=== PATIENT | male | born 1985 | race Asian ===

== ENCOUNTER 2024-06-09 09:34 | Inpatient (IN) | payer OTHER ==
[~2024-06-09] VITALS: Ht 190.5 cm; Wt 113.0 kg
[2024-06-09 10:22] LABS: BASOPHILS % (AUTO) 0.2 % (0.0-2.0); EOSINOPHILS % (AUTO) 1.4 % (1.0-6.0); HEMOGLOBIN 16.2 g/dL (13.5-17.5); LYMPHOCYTES # (AUTO) 1.5 K/uL (1.0-4.8); LYMPHOCYTES % (AUTO) 15.7 % (22.0-44.0); MEAN CORPUSCULAR HEMOGLOBIN 30.4 pg (26.0-34.0); MEAN CORPUSCULAR HGB CONC 33.8 G/dL (31.0-37.0); MEAN CORPUSCULAR VOLUME 90 fL (80-100); MONOCYTES # (AUTO) 0.7 K/uL (0.1-1.0); NEUTROPHILS % (AUTO) 74.7 % (40.0-70.0); PLATELET COUNT (AUTO) 276 K/uL (150-450); RED BLOOD CELL COUNT(AUTO) 5.34 MIL/uL (4.50-5.90); RED CELL DISTRIBUTION WIDTH 13.3 % (11.5-14.5); WHITE BLOOD COUNT (AUTO) 9.4 K/uL (4.5-11.0)
[2024-06-09 10:24] LABS: ANION GAP 8 mmol/L (8-16); CALCIUM, TOTAL 9.3 mg/dL (8.8-10.5); CARBON DIOXIDE 29 mmol/L (22-29); CHLORIDE 104 mmol/L (98-107); CREATININE 0.75 mg/dL (0.60-1.30); GLOMERULAR FILTR. RATE CALC > 60 mL/min (>60); GLUCOSE,RANDOM 95 mg/dL (70-110); POTASSIUM 3.7 mmol/L (3.5-5.1); SODIUM SERUM 141 mmol/L (136-145); UREA NITROGEN, BLOOD 15 mg/dL (7-18)
[2024-06-09 10:42] LABS: ALCOHOL, BLOOD (SERUM) < 3 mg/dL (0-10)
[2024-06-09] MEDS: NICOTINE 21 MG/24 HOUR PATCH TD ONE (11:30)
[2024-06-09 11:37] LABS: PH,URINE DRUG SCREEN 6.5 (5.0-8.0)
[2024-06-09 11:48] LABS: ALCOHOL, URINE DRUG SCREEN NEGATIVE (NEGATIVE); AMPHET/METH SCREEN,URINE NEGATIVE (NEGATIVE); BARBITURATE SCREEN, URINE NEGATIVE (NEGATIVE); BENZODIAZEPINES SCREEN,URINE NEGATIVE (NEGATIVE); CANNABINOID SCREEN,URINE NEGATIVE (NEGATIVE); COCAINE SCREEN,URINE NEGATIVE (NEGATIVE); METHADONE SCREEN, URINE NEGATIVE (NEGATIVE); OPIATE SCREEN,URINE NEGATIVE (NEGATIVE); PHENCYCLIDINE SCREEN,URINE NEGATIVE (NEGATIVE)
[2024-06-09 16:50] VITALS: BP 163/94; PULSE 83; RESP 20; TEMP 97.5; O2SAT 99
[2024-06-09] MEDS: AmLODIPine BESYLATE 2.5 MG TABLET PO ONE (18:20)
[2024-06-09 20:29] VITALS: BP 159/100; PULSE 104; RESP 20; TEMP 97.7; O2SAT 100
[2024-06-09] MEDS: ACETAMINOPHEN 650 MG/20.3 ML SOLUTION UDCUP PO ONE (20:59)
[2024-06-09] MEDS: ACETAMINOPHEN 500 MG TABLET PO ONE (21:03)
[2024-06-09 23:30] VITALS: BP 149/101; PULSE 98; RESP 20; TEMP 97.9; O2SAT 96
[2024-06-10 04:51] VITALS: BP 132/68; PULSE 69; RESP 19; TEMP 97.5; O2SAT 97
[2024-06-10 07:15] VITALS: BP 131/80; PULSE 84; RESP 18; TEMP 97.7; O2SAT 98
[2024-06-10] MEDS: AmLODIPine BESYLATE 2.5 MG TABLET PO SCH (08:25)
[2024-06-10] MEDS: ESCITALOPRAM OXALATE 10 MG TABLET PO SCH (15:09)
[2024-06-10] MEDS: NICOTINE 14 MG/24 HOUR PATCH TD SCH (15:09)
[2024-06-10 17:15] VITALS: BP 136/95; PULSE 92; RESP 17; TEMP 98.4; O2SAT 97
[2024-06-10 17:21] VITALS: BP 143/95; PULSE 86; RESP 17; TEMP 98.2; O2SAT 97
[2024-06-10 18:37] LABS: TROPONIN I-HIGH SENSITIVITY 6 ng/L (<76)
[2024-06-10 19:20] VITALS: BP 136/84; PULSE 96; RESP 18; TEMP 98.1; O2SAT 97
[2024-06-10] MEDS: ASPIRIN 81 MG CHEWABLE TABLET PO ONE (19:36)
[2024-06-10] MEDS: CARVEDILOL 3.125 MG TABLET PO ONE (19:36)
[2024-06-10] MEDS: NITROGLYCERIN 0.4 MG SUBLINGUAL TABLET #25 SL ONE (19:37)
[2024-06-10 21:11] VITALS: BP 140/90; PULSE 89; RESP 18; TEMP 98.2; O2SAT 100
[2024-06-11 04:15] VITALS: BP 104/89; PULSE 76; RESP 18; TEMP 97.3; O2SAT 95
[2024-06-11 07:40] VITALS: BP 127/65; PULSE 84; RESP 18; TEMP 97.5; O2SAT 97
[2024-06-11] MEDS: MICONAZOLE NITRATE 2% 30 GM CREAM TP SCH (08:21)
[2024-06-11 19:54] VITALS: BP 134/87; PULSE 92; RESP 20; TEMP 98.4; O2SAT 97
[2024-06-12 05:55] VITALS: BP 106/60; PULSE 70; RESP 20; TEMP 97.6; O2SAT 98
[2024-06-12 07:09] VITALS: BP 130/97; PULSE 77; RESP 18; TEMP 97.9; O2SAT 99
[2024-06-12 07:10] VITALS: BP 126/78
[2024-06-12] MEDS ORDERED: ESCI-8 PO (13:58)
[2024-06-12] MEDS ORDERED: AMLO2.5T96 PO (13:58)
[2024-06-12] MEDS ORDERED: MICO45CR44 VG (13:59)
[2024-06-12] MEDS ORDERED: NICO-803 TD (14:00)
[2024-06-12] MEDS: NICOTINE 21 MG/24 HOUR PATCH TD SCH (14:20)
== END 2024-06-12 16:30 | DRG 885 ==
LOC: EMS 09:39 → EDH 10:25 → 6N 16:52
PROVIDERS: ADMIT Internal Medicine; ATTEND Internal Medicine
PROC: GZ56ZZZ Individual Psychotherapy, Supportive (ICD-10-PCS; principal; 2024-06-10)
DX: F33.2 Major depressive disorder, recurrent severe without psychotic features (principal); R45.851 Suicidal ideations; F10.10 Alcohol abuse, uncomplicated; F17.210 Nicotine dependence, cigarettes, uncomplicated; I10 Essential (primary) hypertension; Z91.011 Allergy to milk products
CPT/HCPCS: 80048; 80307; 84484; 85025; 99285; G0480